=== PATIENT | male | born 1950 ===

== ENCOUNTER 2021-09-02 09:40 | Emergency (ER) | payer OTHER ==
[~2021-09-02] VITALS: Ht 193 cm; Wt 89.5 kg
[2021-09-02 10:01] VITALS: BP 127/96
--- NOTE | 2021-09-02 10:05 | PHYS DOC ---
Adult General Chief Complaint Chief Complaint: INSECT BITE HPI HPI Patient is a 71 year old male who presents with complaint of tick bite to the right axilla. States he first noticed the tick this morning. States that he was outdoors yesterday and believes this is when he likely acquired the tick. Denies any other symptoms. He states he tried to remove the tick himself but was unsuccessful thus he came to the emergency department for further evaluation and assistance with removal. Review of Systems Review of Systems Constitutional: Denies fever or chills [] Eyes: Denies change in visual acuity, redness, or eye pain [] HENT: Denies nasal congestion or sore throat [] Respiratory: Denies cough or shortness of breath [] Cardiovascular: Denies chest pain or edema [] GI: Denies abdominal pain, nausea, vomiting, bloody stools or diarrhea [] : Denies dysuria or hematuria [] Musculoskeletal: Denies back pain or joint pain [] Integument: Tick bite, denies rash or skin lesions [] Neurologic: Denies headache, focal weakness or sensory changes [] All other systems were reviewed and found to be within normal limits, except as documented in this note. Allergies Allergies Allergies Coded Allergies Type Severity Reaction Last Updated Verified No Known Drug Allergies 09/02/21 No Physical Exam Physical Exam Constitutional: Well developed, well nourished, no acute distress, non-toxic appearance. [] HENT: Normocephalic, atraumatic, bilateral external ears normal, oropharynx moist, no oral exudates, nose normal. [] Eyes: PERRLA, EOMI, conjunctiva normal, no discharge. [] Neck: Normal range of motion, no tenderness, supple, no stridor. [] Cardiovascular:Heart rate regular rhythm, no murmur [] Lungs & Thorax: Bilateral breath sounds clear to auscultation [] Abdomen: Bowel sounds normal, soft, no tenderness, no masses, no pulsatile masses. [] Skin: Warm, dry, small lymph full not engorged wood tick identified in the skin of the right axilla, no surrounding erythema, tick does not appear engorged. [] Back: No tenderness, no CVA tenderness. [] Extremities: No tenderness, no cyanosis, no clubbing, ROM intact, no edema. [] Neurologic: Alert and oriented X 3, normal motor function, normal sensory function, no focal deficits noted. [] Current Patient Data Vital Signs Vital Signs Date Time Temp Pulse Resp B/P (MAP) Pulse Ox O2 Delivery O2 Flow Rate FiO2 09/02/21 10:01 97.5 99 18 127/96 (106) 99 Room Air Lab Results Not performed EKG EKG Not performed [] Radiology/Procedures Radiology/Procedures Not performed [] Heart Score C/O Chest Pain: No Risk Factors: Risk Factors: DM, Current or recent (<one month) smoker, HTN, HLP, family history of CAD, obesity. Risk Scores: Risk Factors: DM, Current or recent (<one month) smoker, HTN, HLP, family history of CAD, obesity. Course & Med Decision Making Course & Med Decision Making Pertinent Labs and Imaging studies reviewed. (See chart for details) Appearance of tick appears consistent with a wood tick that is not engorged. This was successfully removed by me with use of curved hemostats. The bite wound was reinspected and showed no evidence of residual head within the wound site. This is a low risk tick bite for Lyme disease transmission. Antibiotic prophylaxis not indicated at this time. Advised to continue to monitor wound site for development of increasing swelling, erythema, or target lesion and advised follow-up as needed in 3 days with primary care provider for reevaluation. Recommend return to the emergency department for any worsening symptoms. Patient voiced understanding and in agreement with treatment plan. [] Dragon Disclaimer Dragon Disclaimer This electronic medical record was generated, in whole or in part, using a voice recognition dictation system. Departure Departure: Impression: Primary Impression: Tick bite with subsequent removal of tick Disposition: 01 HOME / SELF CARE / HOMELESS Condition: GOOD Referrals: JUNITO CAMPUZANO DO (PCP) Patient Instructions: Wood Tick Bite Additional Instructions: Continue to monitor the bite site for any increase in redness or swelling. You may follow with your primary care provider as needed in the next 3 days for reevaluation of the wound site. Return to the emergency department for any worsening symptoms. FREDY FAJARDO MD September 02, 2021 10:05
== END 2021-09-02 10:12 | disposition home or self-care (01) ==
LOC: ER 09:40
DX: S40.861A Insect bite (nonvenomous) of right upper arm, initial encounter (principal); W57.XXXA Bitten or stung by nonvenomous insect and other nonvenomous arthropods, initial encounter; Y93.89 Activity, other specified; Y92.89 Other specified places as the place of occurrence of the external cause; Y99.8 Other external cause status
CPT/HCPCS: 99284